=== PATIENT | male | born 1950 | race Caucasian/White ===

== ENCOUNTER 2016-06-01 17:27 | Emergency (ER) | payer MEDICARE ==
--- NOTE | ~2016-06-01 | CT57 ---
[facility]. [facility] A Service of [facility] & [facility] RADIOLOGY TEXT RESULTS PATIENT: KERRI BLANK LOCATION: SED : 48 UNIT #: [id number] AGE: [address]: ESTEE SUN PA-C SEX: M ORDER DR: [id number] [address] [address] [id number] E MR#: [id number] Acc #: [id number] NAME: KERRI BLANK. : 1950 SEX: M STUDY DATE/TIME: 06/01/2016 17:06 UNIT: SED ROOM: STUDY DESCRIPTION: CT Chest Wo Cont Attending Physician: Estee Sun Pa-C Ordering Physician: Staff Doctor Not On Primary Care Physician: Stefan Cuba D.O. MEDICAL IMAGING REPORT This report is preliminary unless electronic signature is present. EXAM CT chest without IV contrast. DATE OF EXAM 06/01/[address] abdomen and pelvis dated January 23, 2008. INDICATIONS 66-year-old male with left-sided chest pain and dyspnea since 2 p.m. today. TECHNIQUE NOTE: This CT exam was performed with one or more of the following radiation dose reduction techniques: automatic exposure control, adjustment of mA and/or kV according to patient size, and iterative reconstruction. FINDINGS Axial CT imaging of the chest was performed. Lack of IV contrast limits evaluation of adenopathy, and vasculature. No subcutaneous hematoma. Diffuse spondylosis of the thoracic vertebral bodies. Marked Schmorl node formation noted at L1. No acute fractures or suspicious osseous lesions. Normal caliber of the thoracic aorta and pulmonary artery. There is calcification of the aortic arch. Left-sided coronary artery calcification. Airways are patent. No pneumothorax, pleural effusion or pneumonia. Minimal focal subsegmental atelectasis noted in the posterior right costophrenic sulcus. 6 mm noncalcified nodule in the right lower lobe which has somewhat of a plate-like appearance. This may reflect focal subsegmental atelectasis. This area is above the field of view on comparison CT. There is suggestion of minimal emphysema. No evidence of adenopathy in the chest. There is [facility] A Service of [facility] & [facility] RADIOLOGY TEXT RESULTS PATIENT: KERRI BLANK LOCATION: SED : 49 UNIT #: [id number] AGE: [address]: ESTEE SUN PA-C SEX: M ORDER DR: nonspecific gaseous distension of the transverse colon measuring up to 5 cm. This is not pathologically dilated. No evidence of upstream lesion. Minimal calcification of the abdominal aorta with involvement of the left proximal renal artery. IMPRESSION 1. No acute abnormality in the chest or imaged upper abdomen. There is no evidence of rib fracture. 2. 6 mm noncalcified nodule in the right lower lobe which appears somewhat plate-like on the sagittal reformat. Appears there may be some early emphysema within the lungs. CT chest followup without IV contrast is recommended in 6-12 months to document stability. 3. Coronary artery calcification on the left. 4. Minimal calcification at the origin of the left renal artery. 5. Nonspecific gaseous distension of the transverse colon without evidence of high-grade obstruction. Dictated by... Brant Shay M.D. THIS IS AN ELECTRONICALLY VERIFIED REPORT Brant Shay M.D. at 06/05/2016 8:53 PM MARIPOSA/bob TD: 06/01/2016 21:07 JOB #: [id number] MEDICAL IMAGING REPORT Page 1 of 1
[~2016-06-01 17:27] MED LIST: CELEBREX PO; LEXAPRO PO; MOBIC PO; OMEPRAZOLE40 MG PO; SYNTHROID PO; SYNTHROID0.1 MG PO
== END 2016-06-01 18:32 | disposition home or self-care (01) ==
LOC: SED 17:27
DX: S20.212A Contusion of left front wall of thorax, initial encounter (principal); S60.812A Abrasion of left wrist, initial encounter; J43.9 Emphysema, unspecified; I25.10 Atherosclerotic heart disease of native coronary artery without angina pectoris; R91.1 Solitary pulmonary nodule; Z79.899 Other long term (current) drug therapy; W18.30XA Fall on same level, unspecified, initial encounter; Y92.098 Other place in other non-institutional residence as the place of occurrence of the external cause
CPT/HCPCS: 71250; 99284